=== PATIENT | female | born 1985 | race Caucasian/White ===

== ENCOUNTER 2023-06-10 03:04 | Emergency (ER) | payer OTHER, SELFPAY ==
[2023-06-10 03:16] VITALS: BP 126/82
[2023-06-10 03:26] VITALS: BMI 25.2
[2023-06-10 03:40] VITALS: BP 100/69
[2023-06-10 03:50] LABS: % Basophils 0.5 % (0-2); % Eosinophils 2.9 % (0-6); % Immature Granulocytes 0.4 % (0-0.5); % Lymphocytes 22.9 % (20.5-51.1); % Monocytes 7.2 % (1.7-9.3); % Neutrophils 66.1 % (42.2-75.2); Absolute Basophils 0.1 10^3/uL (0-0.2); Absolute Eosinophils 0.4 10^3/uL (0-0.7); Absolute Immature Granulocytes 0.1 10^3/uL (0-0.05); Absolute Monocytes 0.9 10^3/uL (0.1-0.6); Absolute Neutrophils 8.6 10^3/uL (1.4-6.5); Hematocrit 38.8 % (37.0-47.0); Hemoglobin 13.1 g/dL (12.0-16.0); Mean Corp Hgb Conc. 33.8 g/dL (33.0-37.0); Mean Corpuscular Hgb 29.9 pg (27.0-31.0); Mean Corpuscular Volume 88.6 fL (81.0-99.0); Mean Platelet Volume 9.3 fL (7.4-10.4); Nucleated Red Blood Cells % 0 %; Platelet Count 317 10^3/uL (130-400); Red Blood Cell Count 4.38 10^6/uL (4.20-5.40); Red Cell Dist. Width 12.8 % (11.5-14.5)
[2023-06-10 04:00] VITALS: BP 117/75
[2023-06-10 04:01] LABS: HCG, Serum Qualitative Screen Negative
[2023-06-10 04:02] LABS: Urine Albumin Trace (Neg - Trace); Urine Bilirubin 1+ (Negative); Urine Character Clear (Clear); Urine Glucose Negative (Negative); Urine Ketone Trace (Negative); Urine Leukocyte Trace (Negative); Urine Nitrite Negative (Negative); Urine Occult Blood Trace (Negative); Urine Urobilinogen 1+ (Neg - 1+)
[2023-06-10 04:03] LABS: ALT (SGPT) 13 U/L (0-35); AST (SGOT) 21 U/L (14-36); Alkaline Phosphatase 53 U/L (38-126); Blood Urea Nitrogen 11 mg/dl (7-17); Calcium 9.4 mg/dl (8.4-10.2); Carbon Dioxide 26 mmol/L (22-30); Chloride 105 mmol/L (98-107); Estimated Creatinine Clearance 90 ml/min; Glucose 99 mg/dl (70-99); Lipase 72 U/L (23-300); Potassium 3.8 mmol/L (3.5-5.1); Sodium 136 mmol/L (135-145); Total Bilirubin 0.5 mg/dl (0.2-1.3); Total Protein 7.1 g/dl (6.3-8.2); eGFR > 60.00
[2023-06-10 04:05] LABS: Urine Color Amber
[2023-06-10 05:00] VITALS: BP 105/63
[2023-06-10 05:00] LABS: Urine Amorphous Seen; Urine Squamous Cell >30 /LPF (Few)
[2023-06-10 05:01] LABS: Urine Bacteria Many (Negative); Urine Mucus Many
[2023-06-10 05:38] VITALS: BP 110/66
--- NOTE | 2023-06-10 06:31 | ED.GENMED ---
History of Present Illness
General
Chief Complaint: Abdominal Pain
Source: patient
Exam Limitations: none
Time Seen by Provider: 06/10/23 03:56
Nursing documentation reviewed up to this point in time: agreed with
Travel History
Have you had any contact with someone who has COVID-19?: No
Do you have any symptoms of coronavirus? Fever > 100 degrees, chills, cough, shortness of breath, sore throat, loss of taste or smell, muscle aches, or headache?: No
History of Present Illness
History of Present Illness:
This is a 37-year-old woman who has history of hypothyroidism who complains of generalized mid to lower abdominal discomfort that began mildly yesterday afternoon.
Discomfort seemed to worsen throughout the evening and she thought that she was perhaps constipated and took 2 Dulcolax tablets last night prior to bed.
She awoke at 2 AM with sharp lower abdominal pain that was moderate to severe and passed a large soft bowel movement and then liquid nonbloody stool. She admits initially pain was severe but after passing a bowel movement has markedly improved.
She admits to intermittent nausea but has had no vomiting. No fever nor chills.
No history of similar episodes in the past.
She denies back pain or flank pain. No close contacts with similar symptoms.
No recent travel nor recent antibiotic use.
Last menstrual period 2 weeks ago, normal and on time. She is maintained on control pills.
Past History
Past History
ED Past Medical History: Hypothyroidism and Other (Migraine headache)
ED Past Surgical History: None
Social History
Tobacco: Non-smoker
Alcohol: None
Drug: None
Personal:
Living: with family
Employment: Employed ([employer] nurse)
Family History
Family History: Other (Nonsignificant)
Phy Exam
Physical Exam
Physical Exam:
GENERAL: This is a 37-year-old woman who appears her stated age, bright and alert, pleasant, easily communicative and appears in no acute distress. is accompanying. Vital signs reviewed, afebrile, normotensive.
EYE: anicteric
NECK: Supple, nontender, no meningismus, no significant adenopathy.
ENT: oral mucosa is moist. No rhinorrhea.
CARDIAC: Regular rate and rhythm. no murmur.
LUNGS: Clear breath sounds bilaterally, no acute respiratory distress, no wheezes/rales/rhonchi
ABDOMEN: Soft, nondistended, minimal tenderness right lower quadrant with deep palpation only, no rebound or guarding, no rigidity, normoactive bowel sounds. No CVA tenderness. No palpable masses.
NEUROLOGICAL: Alert and oriented x3, no focal neuro deficits. Gait is steady.
SKIN: Warm and dry, normal color, skin intact. No rash.
MUSCULOSKELETAL: No C/C/E. peripheral pulses are full and equal b/l. No palpable tenderness.
PSYCH: Normal and appropriate interaction.
Course
Orders/Labs/Results
Orders:
Orders
06/10/23 03:38
Test Result ONCE
06/10/23 03:39
Complete Blood Count/With Diff Urgent
Comprehensive Metabolic Panel Urgent
HCG, Serum Qualitative Screen Urgent
Lipase Urgent
Urinalysis Reflex To Culture Urgent
Date Specimen was Collected: 06/10/23
Time Specimen was Collected: 03:38
Urine Microscopic Reflex Cult Urgent
Urine Culture Urgent
SAMUEL Source: U
Specimen Description:
Date Specimen was Collected: 06/10/23
Time Specimen was Collected: 03:38
06/10/23 04:10
CT Abd/pelvis W Iv Cont Urgent
Comment:
Reason For Exam: RLQ pain x 1 day- worse tonight
Abnormal Lab Results
06/10/23
03:39
WBC 13.0 H 10^3/uL
(4.8-10.8)
Abs Immat Gran (auto) 0.1 H 10^3/uL
(0-0.05)
Absolute Neuts (auto) 8.6 H 10^3/uL
(1.4-6.5)
Absolute Monos (auto) 0.9 H 10^3/uL
(0.1-0.6)
Urine Ketones Trace A
(Negative)
Ur Occult Blood Reflex Trace A
(Negative)
Urine Bilirubin 1+ A
(Negative)
Leukocyte Esterase Rfl Trace A
(Negative)
Urine RBC 3-6 A /HPF
(0-2)
Urine Bacteria (Reflex) Many A
(Negative)
06/10/23 03:39
06/10/23 03:39
Vital Signs
Initial and Last Documented VS:
Initial Vital Signs
Temp Pulse Resp BP Pulse Ox
97.9 F 74 24 126/82 100
06/10/23 03:16 06/10/23 03:16 06/10/23 03:16 06/10/23 03:16 06/10/23 03:16
Last Documented Vital Signs
Temp Pulse Resp BP Pulse Ox
97.9 F 74 24 110/66 100
06/10/23 03:16 06/10/23 03:16 06/10/23 03:16 06/10/23 05:38 06/10/23 03:59
MDM/Problems Addressed
Differential Diagnosis Includes:
Concern for acute diarrhea related to laxative use, acute colitis, gastroenteritis, acute appendicitis, ovarian cyst rupture.
Clinically well in appearance, abdominal exam is remarkable for only minimal tenderness right lower quadrant with deep palpation.
She is afebrile, normotensive.
Labs reveal mildly elevated white blood cell count of 13, chemistries are unremarkable, hCG is negative as expected.
Due to right lower quadrant pain, mildly elevated white blood cell count, concern for potential appendicitis thus will check CT of the abdomen and pelvis.
Will continue to observe for return or worsening of abdominal pain.
*Radiology
Radiology exam reviewed: radiology read reviewed
*Pulse Oximetry
Patient hypoxic: no
*Critical Care Note
Total Time (30-74mins, 75-104mins- exclusive of procedures): Not Applicable
Update Note
Update Note:
06/10/2023 0632 AM
Patient has passed several small nonbloody loose stools since arrival to the ED and admits to intermittent nausea but has had no vomiting, tolerating sips of clear liquids.
She remains afebrile and abdomen is soft without appreciable tenderness.
CAT scan shows normal appendix but evidence of acute gastroenteritis and colitis with proctitis. There is no obstruction.
I suspect acute gastroenteritis/colitis may be viral versus foodborne but overall clinically well in appearance.
No recent antibiotic use nor recent travel.
Recommend supportive measures, limiting diet to clear liquids over the next 24 hours then slowly advance as tolerated.
Will prescribe Lomotil for as needed diarrhea, Zofran for as needed nausea.
Prompt follow-up with PCP for recheck.
Return precautions discussed.
ED Attending Note
-
Portions of this chart may have been created with voice recognition software.� Occasional wrong word or��sound alike� substitutions may have occurred due to the inherent limitations of voice recognition software.
Discharge Plan
Departure
Patient Disposition: Home (Routine Discharge)
Date of Disposition: 06/10/23
Time of Disposition: 06:33
Patient with high blood pressure during this ER visit?: No
Condition: Good
Discharge Problem:
Acute gastroenteritis, Acute colitis
Instructions: Clear Liquid Diet, Viral Gastroenteritis, Adult (DC)
Prescriptions:
New
diphenoxylate-atropine [Lomotil] 2.5-0.025 mg tablet
1 tab PO QID PRN (Reason: diarrhea) Qty: 10 0RF
ondansetron 4 mg tablet,disintegrating
4 mg PO QID PRN (Reason: nausea and vomiting) Qty: 20 0RF
No Action
levothyroxine 112 MCG tablet
137 mcg PO DAILY AT 0700
acetaminophen 325 MG tablet
650 mg PO Q4HPRN PRN (Reason: mild pain) 0RF
ibuprofen 600 MG tablet
600 mg PO Q4HPRN PRN (Reason: moderate pain/cramps) 0RF
bupropion HCl [Wellbutrin] 100 mg Tablet
100 mg PO DAILY
Colace 50 mg Capsule
50 mg PO DAILY
vitamin [id number] acid
1 tab PO DAILY
Referrals:
Zuleyka Mendoza CRNP [Family Provider] - Call in 1-3 days for appt
Stand Alone Forms: Return to Work
Interventions
Interventions:
*Risk Screen - Suicide Last Done: 06/10/23 03:16
*General Assessment Last Done: 06/10/23 03:26
*Neglect/Abuse Screening Last Done: 06/10/23 03:16
ED- Fall Risk Assessment Last Done: 06/10/23 03:26
*ED COVID-19 Vaccine History Last Done: 06/10/23 03:26
*Nursing Disposition Last Done: 06/10/23 06:44
ML-Cxdpyz-Mkkzdycgwl Assessment Last Done: 06/10/23 03:26
Discharge Date and Time
Discharge Date/Time: 06/10/23 06:45
Print Language: ALBANIAN
== END 2023-06-10 06:45 | disposition home or self-care (01) ==
LOC: EMR 03:04
PROVIDERS: EMERGENCY PHYSICIAN Emergency Medicine; FAMILY PHYSICIAN Nurse Practitioner Adult Health
DX: K52.9 Noninfective gastroenteritis and colitis, unspecified (principal); R11.0 Nausea; E03.9 Hypothyroidism, unspecified; G43.909 Migraine, unspecified, not intractable, without status migrainosus; Z86.16 Personal history of COVID-19
CPT/HCPCS: 99285; 74177; 80053; 81003; 81015; 83690; 84703; 85025; 87086; Q9967

== ENCOUNTER → 2024-01-04 06:24 | Day surgery (SDC) | payer OTHER, SELFPAY | LOC: GI 06:24 | PROVIDERS: ATTENDING PHYSICIAN Internal Medicine Gastroenterology | DX: K64.8 Other hemorrhoids (principal); R19.4 Change in bowel habit; K29.50 Unspecified chronic gastritis without bleeding; R10.13 Epigastric pain; Z83.719 Family history of colon polyps, unspecified; Z83.79 Family history of other diseases of the digestive system | CPT/HCPCS: 45380; 43239; 88305; 88342 ==